=== PATIENT | female | born 1945 | race Caucasian/White ===

== ENCOUNTER 2018-03-21 10:40 | Day surgery (SDC) | payer MEDICARE, BC ==
[2018-03-21] MEDS ORDERED: Propofol 200 MG/20 ML SDV IV ONE ×2 (10:41→13:19)
[2018-03-21] MEDS ORDERED: Sodium Chloride 0.9% 10 ML Syringe FLUSH PRN (10:45)
--- NOTE | 2018-03-22 10:51 | OR ---
DATE OF OPERATION: 03/21/2018 SURGEON: Gm Grey MD PREOPERATIVE DIAGNOSIS: Cataract, right eye. POSTOPERATIVE DIAGNOSIS: Cataract, right eye. OPERATION PERFORMED: Phacoemulsification of cataract, right eye with the placement of an Munoz, model [id number], 23.0 diopter, foldable, posterior chamber intraocular lens. HYPERBARIC NURSE: None. DESCRIPTION OF PROCEDURE: Peribulbar anesthetic was performed using a mixture of 2% lidocaine with Wydase. The patient was prepped and draped in the usual fashion. A 3 mm fornix based conjunctival flap was performed at the 10 o'clock position. Hemostasis was obtained using diathermy, and a 2.8 mm grooved near clear corneal incision was then made. A stab incision was made into the anterior chamber at the 12 o'clock position and a second stab wound incision was made underlying the grooved near clear corneal incision. Viscoat was instilled into the anterior chamber, and a continuous tear capsulotomy was performed. Hydrodissection was accomplished with balanced salt solution, and the nucleus was removed in a divide and conquer fashion. The remaining cortical material was removed with the irrigation and aspiration unit. Viscoat was instilled into the anterior chamber, and an Munoz, model Z9002, 23.0 diopter, foldable, posterior chamber intraocular lens was placed into the capsular bag, the haptics being positioned at the 3 and 9 o'clock positions. The residual Viscoat was removed from the anterior chamber and the anterior chamber reformed with balanced salt solution. The wound was checked and noted to be watertight. The conjunctiva was secured in its original position with diathermy. Alphagan and Maxitrol Ointment were then placed into the patient's eye. The patient tolerated the procedure well and it was without complication. Elapsed phacoemulsification time was 21.9 seconds. Postoperative instructions as related to activities as well as medications were reviewed with the patient. The patient was instructed to return to see me on the day following surgery for the first postoperative check. The patient was also instructed to contact me prior to that time if she were to have any problems. /[id number] DEG/MODL CC: STEPHANIE SINCLAIR PA-C
== END 2018-03-21 14:35 | disposition home or self-care (01) ==
LOC: FB.SDS 10:40
PROVIDERS: ATTEND Ophthalmology
DX: H25.813 Combined forms of age-related cataract, bilateral (principal); H52.4 Presbyopia; H50.00 Unspecified esotropia; H40.1 Open-angle glaucoma; H52.209 Unspecified astigmatism, unspecified eye; E03.9 Hypothyroidism, unspecified; I10 Essential (primary) hypertension; M19.90 Unspecified osteoarthritis, unspecified site; Z79.82 Long term (current) use of aspirin; Z79.899 Other long term (current) drug therapy; Z88.0 Allergy status to penicillin; Z88.2 Allergy status to sulfonamides
CPT/HCPCS: 00142-QZ; C1780; J2704; J7050

== ENCOUNTER 2021-03-05 20:20 | Emergency (ER) | payer MEDICARE, BC ==
--- NOTE | 2021-03-05 20:48 | EDM.PDOC ---
ED HPI GENERAL MEDICAL PROBLEM - General Stated Complaint: ABDOMINAL PAIN Time Seen by Provider: 03/05/21 20:30 Source of Information: Reports: Patient - History of Present Illness INITIAL COMMENTS - FREE TEXT/NARRATIVE: 75-year-old lady came to the emergency department because of abdominal pain and discomfort with nausea. She was in her normal state of health yesterday and had no complaints. When she woke up this morning she states she felt a little dizzy. She went to work and was cleaning out a fryer with a strong chemical and got a big whiff of the chemical and immediately felt nauseous. She did not vomit. She got away from the chemical and felt better but throughout the day has had increasing stomach discomfort. She states that she feels "gassy." She came to the emergency room for further evaluation because she began to feel worse. After few minutes in the emergency room she vomited. He denies chest pain, shortness of breath, fever, chills. - Related Data Allergies Allergy/AdvReac Type Severity Reaction Status Date / Time Penicillins Allergy Patient Verified 03/05/21 22:27 states it doesn't work for her. Sulfa (Sulfonamide Allergy Rash Verified 03/05/21 22:27 Antibiotics) Home Meds: Home Meds Fam/D3/Mag11/Zinc/Cardiology Clinical Nurse Specialist/Nathan/Bor [Caltrate Plus Tablet] 1 each PO BID 03/20/18 [History] Latanoprost [Xalatan] 1 drop EYEBOTH BEDTIME 03/20/18 [History] methIMAzole [Tapazole] 5 mg PO DAILY 03/20/18 [History] Ciprofloxacin [Ciprofloxacin HCl] 500 mg PO BID #9 tab 03/05/21 [Rx] Losartan [Cozaar] 50 mg PO DAILY 03/05/21 [History] hydroCHLOROthiazide [Hydrochlorothiazide] 12.5 mg PO DAILY 03/05/21 [History] Past Medical History HEENT History: Reports: Cataract Cardiovascular History: Reports: Hypertension Respiratory History: Reports: None Gastrointestinal History: Reports: None Genitourinary History: Reports: None 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 TOUCH UP WORKER History: II PARA II Musculoskeletal History: Reports: Arthritis, Osteoporosis Neurological History: Reports: None Psychiatric History: Reports: None Endocrine/Metabolic History: Reports: Hypothyroidism Hematologic History: Reports: None Immunologic History: Reports: None Oncologic (Cancer) History: Reports: None Dermatologic History: Reports: None - Infectious Disease History Infectious Disease History: Reports: Chicken Pox, Influenza, Measles, Mumps, Rubella - Past Surgical History HEENT Surgical History: Reports: Cataract Surgery, Oral Surgery GI Surgical History: Reports: Colonoscopy Female Surgical History: Reports: None Musculoskeletal Surgical History: Reports: None Social & Family History - Family History Family Medical History: No Pertinent Family History - Caffeine Use Caffeine Use: Reports: Coffee, Soda Other Caffeine Use: MINIMAL ED ROS GENERAL - Review of Systems Review Of Systems: See Below Constitutional: Reports: No Symptoms HEENT: Reports: No Symptoms Respiratory: Reports: No Symptoms Cardiovascular: Reports: No Symptoms Endocrine: Reports: No Symptoms GI/Abdominal: Reports: Abdominal Pain, Nausea, Vomiting : Reports: No Symptoms Musculoskeletal: Reports: No Symptoms Skin: Reports: No Symptoms Neurological: Reports: Dizziness Psychiatric: Reports: No Symptoms Hematologic/Lymphatic: Reports: No Symptoms Immunologic: Reports: No Symptoms ED EXAM, GI/ABD - Physical Exam Exam: See Below Exam Limited By: No Limitations General Appearance: Alert, Mild Distress Eyes: Bilateral: EOMI Head: Atraumatic, Normocephalic Respiratory/Chest: No Respiratory Distress, Lungs Clear Cardiovascular: No Murmur, Irregularly Irregular, Other (Suspect ectopic beats) GI/Abdominal Exam: Tender. No: Rigid Back Exam: CVA Tenderness (L). No: CVA Tenderness (R) Extremities: Normal Inspection Neurological: Alert, Oriented, CN II-XII Intact, Normal Cognition Psychiatric: Anxious Skin Exam: Warm, Dry, Intact Course - Vital Signs Text/Narrative:: Physical exam revealed irregular heart rate. EKG showed sinus rhythm with right bundle branch block, no irregularity, no ectopic beats, normal axis, no obvious ST-T segment abnormalities. However, there are inverted T waves in V2 and V3. Troponin is negative. Chest x-ray and abdominal x-ray showed calcifications in several of the ribs. External radiology reading showed that these were not acute nor aggressive osseous abnormalities. Tray showed airspace opacity of the right lower lobe, likely subsegmental atelectasis versus pulmonary edema. Ab dominal x-ray showed nonobstructed bowel gas pattern and an irregular calcification in the left upper quadrant measuring 3.7 cm. Again the ribs showed acute, nonaggressive osseous abnormalities. Review of laboratory results shows likely urinary tract infection with mild leukocytosis. Patient was given 400 mg ciprofloxacin IV and 500 mL normal saline bolus. Patient also likely has a very mild acute kidney injury with creatinine of 1.4. Review of her past medical labs shows that her highest creatinine was 1.09. Last Recorded V/S: Last Vital Signs Temp 37.1 C 03/05/21 22:15 Pulse 94 03/05/21 22:15 Resp 18 03/05/21 22:15 BP 131/57 L 03/05/21 22:15 Pulse Ox 97 03/05/21 22:15 - Orders/Labs/Meds Orders: Active Orders 24 hr Category Date Time Status Abdomen 2V AP Flat Upright [CR] Stat Exams 03/05/21 20:46 Taken Chest 2V [CR] Stat Exams 03/05/21 20:46 Ordered CORONAVIRUS (COVID19) [facility] Urgent Lab 03/05/21 21:05 Received CULTURE URINE [RM] Stat Lab 03/05/21 21:11 Ordered Ciprofloxacin in D5W [Cipro in D5W 400 MG/200 ML] 400 Med 03/05/21 22:09 Ordered mg Premix Bag 1 bag IV ONETIME EKG 12 Lead [EK] Routine Ther 03/05/21 20:48 Ordered Medication Orders Ciprofloxacin/Dextrose 400 mg/ (Premix) 200 mls @ 200 mls/hr IV ONETIME ONE Stop: 03/05/21 23:08 Last Admin: 03/05/21 22:19 Dose: 200 mls/hr Documented by: FLO Labs: Laboratory Tests 03/05/21 03/05/21 03/05/21 Range/Units 20:45 20:55 20:55 WBC 10.6 H (3.0-10.3) x10-3/uL RBC 4.96 (3.60-5.20) x10(6)uL Hgb 13.1 (11.4-15.5) g/dL Hct 41.0 (34.2-48.2) % MCV 82.7 (76.7-100.5) fL MCH 26.5 (23.9-33.9) pg MCHC 32.0 (31.9-34.8) g/dL RDW 14.4 (12.3-16.5) % Plt Count 452 (151-488) x10(3)uL MPV 7.6 (7.1-12.4) fL Neut % (Auto) 72.7 (30.8-76.2) % Lymph % (Auto) 19.4 (18.4-52.1) % [place] % (Auto) 7.4 (4.4-15.7) % Eos % (Auto) 0.3 L (0.6-8.1) % Baso % (Auto) 0.2 (0.2-1.5) % Neut # (Auto) 7.7 H (1.5-6.3) x10-3/uL Lymph # (Auto) 2.1 (1.0-4.4) x10-3/uL [place] # (Auto) 0.8 (0.3-1.0) x10-3/uL Eos # (Auto) 0.0 (0.0-0.8) x10-3/uL Baso # (Auto) 0.0 (0.0-0.1) x10-3/uL Sodium 136 (135-145) mmol/L Potassium 3.7 (3.5-5.3) mmol/L Chloride 99 L (100-110) mmol/L Carbon Dioxide 23 (21-32) mmol/L BUN 23 H (7-18) mg/dL Creatinine 1.4 H (0.55-1.02) mg/dL Est Cr Clr Drug Dosing TNP Estimated GFR (MDRD) 37 L (>60) BUN/Creatinine Ratio 16.4 (9-20) Glucose 135 H (80-116) mg/dL Calcium 9.9 (8.6-10.2) mg/dL Total Bilirubin 1.2 (0.1-1.3) mg/dL AST 13 (5-25) IU/L ALT 16 (12-36) U/L Alkaline Phosphatase 63 (56-112) IU/L Troponin I (4.0-60.3) pg/mL Total Protein 8.5 H (6.0-8.0) g/dL Albumin 3.9 (3.2-4.6) g/dL Globulin 4.6 g/dL Albumin/Globulin Ratio 0.9 Urine Color Yellow (YELLOW) Urine Appearance Slightly cloudy (CLEAR) Urine pH 5.0 (5.0-6.5) Ur Specific [place] 1.025 (1.010-1.025) Urine Protein Trace (NEGATIVE) mg/dL Urine Glucose (UA) Normal (NORMAL) mg/dL Urine Ketones 15 H (NEGATIVE) mg/dL Urine Occult Blood Large H (NEGATIVE) Urine Nitrite Positive H (NEGATIVE) Urine Bilirubin Negative (NEGATIVE) Urine Urobilinogen Normal (NEGATIVE) mg/dL Ur Leukocyte Esterase Moderate H (NEGATIVE) Urine RBC 10-20 H (0-5) Urine WBC 10-20 H (0-5) Ur Squamous Epith Cells Few H (NS,R,O) Urine Bacteria Many H (NS) 03/05/21 Range/Units 20:55 WBC (3.0-10.3) x10-3/uL RBC (3.60-5.20) x10(6)uL Hgb (11.4-15.5) g/dL Hct (34.2-48.2) % MCV (76.7-100.5) fL MCH (23.9-33.9) pg MCHC (31.9-34.8) g/dL RDW (12.3-16.5) % Plt Count (151-488) x10(3)uL MPV (7.1-12.4) fL Neut % (Auto) (30.8-76.2) % Lymph % (Auto) (18.4-52.1) % [place] % (Auto) (4.4-15.7) % Eos % (Auto) (0.6-8.1) % Baso % (Auto) (0.2-1.5) % Neut # (Auto) (1.5-6.3) x10-3/uL Lymph # (Auto) (1.0-4.4) x10-3/uL [place] # (Auto) (0.3-1.0) x10-3/uL Eos # (Auto) (0.0-0.8) x10-3/uL Baso # (Auto) (0.0-0.1) x10-3/uL Sodium (135-145) mmol/L Potassium (3.5-5.3) mmol/L Chloride (100-110) mmol/L Carbon Dioxide (21-32) mmol/L BUN (7-18) mg/dL Creatinine (0.55-1.02) mg/dL Est Cr Clr Drug Dosing Estimated GFR (MDRD) (>60) BUN/Creatinine Ratio (9-20) Glucose (80-116) mg/dL Calcium (8.6-10.2) mg/dL Total Bilirubin (0.1-1.3) mg/dL AST (5-25) IU/L ALT (12-36) U/L Alkaline Phosphatase (56-112) IU/L Troponin I < 4.0 L (4.0-60.3) pg/mL Total Protein (6.0-8.0) g/dL Albumin (3.2-4.6) g/dL Globulin g/dL Albumin/Globulin Ratio Urine Color (YELLOW) Urine Appearance (CLEAR) Urine pH (5.0-6.5) Ur Specific [place] (1.010-1.025) Urine Protein (NEGATIVE) mg/dL Urine Glucose (UA) (NORMAL) mg/dL Urine Ketones (NEGATIVE) mg/dL Urine Occult Blood (NEGATIVE) Urine Nitrite (NEGATIVE) Urine Bilirubin (NEGATIVE) Urine Urobilinogen (NEGATIVE) mg/dL Ur Leukocyte Esterase (NEGATIVE) Urine RBC (0-5) Urine WBC (0-5) Ur Squamous Epith Cells (NS,R,O) Urine Bacteria (NS) Meds: Medications Generic Name Dose Route Start Last Admin Trade Name Freq PRN Reason Stop Dose Admin Ciprofloxacin/Dextrose 400 mg/ 200 mls @ 200 mls/hr 03/05/21 22:09 03/05/21 22:19 Premix IV 03/05/21 23:08 200 mls/hr ONETIME ONE Administration Discontinued Medications Generic Name Dose Route Start Last Admin Trade Name Freq PRN Reason Stop Dose Admin Sodium Chloride 500 mls @ 999 mls/hr 03/05/21 21:23 03/05/21 21:50 Normal Saline IV 03/05/21 21:53 999 mls/hr .BOLUS ONE Administration Departure - Departure Time of Disposition: 22:58 Disposition: Home, Self-Care 01 Clinical Impression: UTI (urinary tract infection), Leukocytosis, Acute kidney injury, Atelectasis o f right lung, Abnormal x-ray of abdomen - Discharge Information *PRESCRIPTION DRUG MONITORING PROGRAM REVIEWED*: Not Applicable *COPY OF PRESCRIPTION DRUG MONITORING REPORT IN PATIENT MADHURI: Not Applicable Prescriptions: Ciprofloxacin [Ciprofloxacin HCl] 500 mg PO BID #9 tab Instructions: Atelectasis, Adult, Acute Kidney Injury, Adult, Urinary Tract Infection, Adult, [id number] Additional Instructions: Patient informed of all findings. Patient has an appointment with primary care physician proximately 6 days. Patient instructed to take antibiotics until completed, drink plenty of water and fluids. Use [id number] products such as stool softeners and MiraLAX to affect bowel movement. Sepsis Event Note (ED) - Focused Exam Vital Signs: Vital Signs Temp Pulse Resp BP Pulse Ox 03/05/21 22:15 37.1 C 94 18 131/57 L 97 03/05/21 20:20 36.1 C 107 H 20 140/84 98 - My Orders Last 24 Hours: My Active Orders 03/05/21 20:46 Abdomen 2V AP Flat Upright [CR] Stat Chest 2V [CR] Stat 03/05/21 20:48 EKG 12 Lead [EK] Routine 03/05/21 21:05 CORONAVIRUS (COVID19) [facility] Urgent 03/05/21 21:11 CULTURE URINE [RM] Stat 03/05/21 22:09 Ciprofloxacin in D5W [Cipro in D5W 400 MG/200 ML] 400 mg Premix Bag 1 bag IV ONETIME - Assessment/Plan Last 24 Hours: My Active Orders 03/05/21 20:46 Abdomen 2V AP Flat Upright [CR] Stat Chest 2V [CR] Stat 03/05/21 20:48 EKG 12 Lead [EK] Routine 03/05/21 21:05 CORONAVIRUS (COVID19) [facility] Urgent 03/05/21 21:11 CULTURE URINE [RM] Stat 03/05/21 22:09 Ciprofloxacin in D5W [Cipro in D5W 400 MG/200 ML] 400 mg Premix Bag 1 bag IV ONETIME
[2021-03-05] MEDS: Sodium Chloride 0.9% 500 ML IV ONE (21:50)
[2021-03-05] MEDS: Ciprofloxacin in D5W 400 MG in Premix Bag 1 BAG IV ONE ×2 (22:19)
--- NOTE | 2021-03-05 23:04 | PCM.EKG ---
#1 Interpretation EKG Date: 03/05/21 Time: 21:16 EKG Interpretation Comments: Sinus rhythm, normal axis, rate 94, right bundle branch block, inverted T waves in V2 and V3, no other obvious ST-T segment abnormalities secondary to right bundle branch block
[2021-03-07 18:54] LABS: CORNONAVIRUS (COVID19) CSH-NRL Negative (Negative)
== END 2021-03-05 23:30 | disposition home or self-care (01) ==
LOC: FB.ED 20:20
DX: N39.0 Urinary tract infection, site not specified (principal); J98.11 Atelectasis; N17.9 Acute kidney failure, unspecified; I10 Essential (primary) hypertension; E03.9 Hypothyroidism, unspecified; R93.5 Abnormal findings on diagnostic imaging of other abdominal regions, including retroperitoneum; D72.829 Elevated white blood cell count, unspecified; Z79.899 Other long term (current) drug therapy; Z88.0 Allergy status to penicillin; Z88.2 Allergy status to sulfonamides; Z20.822 Contact with and (suspected) exposure to COVID-19
CPT/HCPCS: 36415; 71046; 74019; 80053; 81001; 84484; 85025; 87086; 87088; 87186; 93005; 96365; 99284; J0744; J7040; U0003